=== PATIENT | female | born 1960 | race Caucasian/White ===

== ENCOUNTER 2018-08-29 08:28 | Inpatient (IN) | payer OTHER ==
[2018-08-29 09:46] LABS: ADD MAN DIFF? NO
[2018-08-29 09:48] LABS: WHITE BLOOD COUNT 7.5 10^3/ul (4.8-10.8)
[2018-08-29 09:48] LABS: BASOPHIL # 0.1 10^3/ul (0.0-0.1); BASOPHILS % 0.9 % (0.0-2.0); EOSINOPHILS # 0.5 10^3/ul (0.0-0.5); HEMATOCRIT 25.5 % (37.0-47.0); HEMOGLOBIN 8.1 g/dl (12.0-16.0); LYMPHOCYTES # 0.9 10^3/ul (0.8-2.9); LYMPHOCYTES % 12.6 % (15.0-51.0); MEAN CORPUSCULAR HEMOGLOBIN 27.5 pg (29.0-33.0); MEAN CORPUSCULAR HGB CONC 31.8 g/dl (32.0-37.0); MEAN CORPUSCULAR VOLUME 86.4 fl (82.0-101.0); MEAN PLATELET VOLUME 10.1 fl (7.4-10.4); MONOCYTE # 0.3 10^3/ul (0.3-0.9); MONOCYTES % 3.9 % (0.0-11.0); NEUTROPHIL # 5.7 10^3/ul (1.6-7.5); NEUTROPHILS % 76.2 % (39.0-77.0); PLATELET COUNT 284 10^3/UL (140-415); RED BLOOD COUNT 2.95 10^6/ul (4.20-5.40); RED CELL DISTRIBUTION WIDTH 14.6 % (11.5-14.5)
[2018-08-29 10:07] LABS: INR 1.09; PROTIME 14.2 Sec (11.9-14.9); PT RATIO 1.1
[2018-08-29 10:08] LABS: PARTIAL THROMBOPLASTIN TIME 31.7 Sec (23.0-35.0)
[2018-08-29 10:09] LABS: ALANINE AMINOTRANSFERASE 38 IU/L (13-69); ALBUMIN 3.7 g/dl (3.3-4.9); ALBUMIN/GLOBULIN RATIO 1.32; ALKALINE PHOSPHATASE 135 IU/L (42-121); ANION GAP 12 (5-13); ASPARTATE AMINO TRANSFERASE 35 IU/L (15-46); BILIRUBIN,INDIRECT 0.1 mg/dl (0-1.1); BILIRUBIN,TOTAL 0.4 mg/dl (0.2-1.3); BLOOD UREA NITROGEN 79 mg/dl (7-20); CALCIUM 9.6 mg/dl (8.4-10.2); CARBON DIOXIDE 15 mmol/L (21-31); CHLORIDE 116 mmol/L (97-110); CREATININE 5.69 mg/dl (0.44-1.00); Estimated GFR 8 mL/min (>60); GLUCOSE 124 mg/dl (70-220); SODIUM 143 mmol/L (135-144); TOTAL PROTEIN 6.5 g/dl (6.1-8.1)
[2018-08-29 10:16] LABS: POTASSIUM 6.3 mmol/L (3.5-5.1)
[2018-08-29 10:19] LABS: B-TYPE NATRIURETIC PEPTIDE 18000 PG/ML (0-125); TROPONIN-I 0.023 ng/ml (0.000-0.120)
[2018-08-29] MEDS: INSULIN REGULAR, HUMAN 100 UNIT/1 ML 3ML VIAL IVP (10:45)
[2018-08-29] MEDS: NA BICARBONATE 8.4% 50 ML SYG IV (10:46)
[2018-08-29] MEDS: DEXTROSE 50% 50 ML SYRINGE IV (10:55)
[2018-08-29] MEDS ORDERED: NITROGLYCERIN (SL) 0.4 MG TAB SL (11:00)
[2018-08-29] MEDS ORDERED: DOCUSATE SODIUM 100 MG CAP PO (11:00)
[2018-08-29] MEDS ORDERED: ACETAMINOPHEN 325 MG TAB PO ×2 (11:00→13:00)
[2018-08-29] MEDS ORDERED: MAGNESIUM HYDROXIDE 30ML CUP PO (11:00)
[2018-08-29] MEDS ORDERED: NACL 0.9% 3 ML SYG IV (11:00)
[2018-08-29] MEDS: ALBUTEROL 0.5% (NEB) 2.5 MG/0.5 ML AMP INH (11:29)
[2018-08-29 11:51] LABS: HEMOGLOBIN A1C 5.3 % (0-5.9)
[2018-08-29] MEDS: FAMOTIDINE 20 MG INJ IV ×2 (12:13→20:45)
[2018-08-29] MEDS: FUROSEMIDE 40 MG INJ IV ×2 (12:14→17:22)
[2018-08-29] MEDS: NICARDipine HCL 30 MG CAPSULE PO (12:49)
[2018-08-29] MEDS ORDERED: ONDANSETRON 4 MG INJ IV (13:00)
[2018-08-29 13:53] LABS: ADD UMIC YES; UR ASCORBIC ACID NEGATIVE (NEGATIVE); UR BILIRUBIN (Dip) NEGATIVE (NEGATIVE); UR BLOOD (Dip) 2+ mg/dL (NEGATIVE); UR CLARITY CLEAR (CLEAR); UR COLOR YELLOW (YELLOW); UR GLUCOSE (Dip) 1+ mg/dL (NEGATIVE); UR KETONES (Dip) NEGATIVE (NEGATIVE); UR LEUKOCYTE ESTERASE (Dip) NEGATIVE Leu/ul (NEGATIVE); UR NITRITE (Dip) NEGATIVE (NEGATIVE); UR RBC 1 /HPF (0-5); UR TOTAL PROTEIN (Dip) 3+ mg/dl (NEGATIVE); UR UROBILINOGEN (Dip) NEGATIVE (NEGATIVE); UR WBC 2 /HPF (0-5)
[2018-08-29] MEDS ORDERED: DEXTROSE 50% 50 ML SYRINGE IV ×2 (15:00)
[2018-08-29] MEDS ORDERED: GLUCAGON 1 MG INJ IM (15:00)
[2018-08-29] MEDS ORDERED: GLUCOSE GEL 15 GRAM TUBE PO ×2 (15:00)
[2018-08-29] MEDS ORDERED: GLUCOSE GEL 15 GRAM TUBE BUCCAL (15:00)
[2018-08-29 16:31] LABS: IRON 41 ug/dl (35-150)
[2018-08-29 16:32] LABS: ANION GAP 15 (5-13); BLOOD UREA NITROGEN 81 mg/dl (7-20); CARBON DIOXIDE 15 mmol/L (21-31); CHLORIDE 112 mmol/L (97-110); CREATININE 5.66 mg/dl (0.44-1.00); Estimated GFR 8 mL/min (>60); GLUCOSE 249 mg/dl (70-220); POTASSIUM 5.4 mmol/L (3.5-5.1); SODIUM 142 mmol/L (135-144)
[2018-08-29 16:40] LABS: % IRON SATURATION 13 % SAT (22-52); TOTAL IRON BINDING CAPACITY 305 ug/dl (241-421)
[2018-08-29] MEDS: INSULIN ASPART [NOVOLOG] 3 ML PEN SC ×2 (17:25→20:40)
[2018-08-29 18:20] LABS: SODIUM,URINE RANDOM 125 mmol/L (30-90)
[2018-08-29 18:20] LABS: CREATININE,URINE RANDOM 37.57 mg/dl (20-320)
[2018-08-29 18:42] LABS: CREATINE KINASE 616 IU/L (23-200)
[2018-08-29 18:56] LABS: AADO2 Arterial 62.3 mmHg (7.0-24.0); Allen Test ACCEPTAB; Arterial Base Excess -10.5 mmol/L (-3.0-3); Arterial Blood Gas Oxygen Sat 83.6 mmHG (95.0-98.0); Arterial COHb 0.3 % (0.0-3.0); Arterial Fraction of Oxyhgb 82.8 % (93.0-99.0); Arterial HCO3 14.8 mmol/L (22.0-26.0); Arterial MetHb 0.6 % (0.0-1.5); Arterial pCO2 30.6 mmhg (35-45); CK INDEX 1.2; CK-MB 7.19 ng/ml (0.0-2.4); MODE ROOM AIR; Site Left Radial; TROPONIN-I 0.044 ng/ml (0.000-0.120)
[2018-08-29] MEDS: ATORVASTATIN 10 MG TAB PO (20:39)
[2018-08-29] MEDS: METOPROLOL 25 MG TAB PO (20:39)
[2018-08-29] MEDS: METOPROLOL 5 MG INJ IV (20:49)
[2018-08-29] MEDS ORDERED: FAMOTIDINE 20 MG INJ IV (21:00)
[2018-08-30 01:10] LABS: CREATINE KINASE 629 IU/L (23-200)
[2018-08-30 01:23] LABS: CK INDEX 1.1; CK-MB 6.63 ng/ml (0.0-2.4)
[2018-08-30] MEDS: hydrALAzine 20 MG INJ IV ×3 (02:31→21:33)
[2018-08-30 06:22] LABS: ADD MAN DIFF? NO
[2018-08-30 06:30] LABS: BASOPHIL # 0.1 10^3/ul (0.0-0.1); EOSINOPHILS # 1.2 10^3/ul (0.0-0.5); EOSINOPHILS % 13.5 % (0.0-7.0); HEMATOCRIT 22.7 % (37.0-47.0); HEMOGLOBIN 7.5 g/dl (12.0-16.0); LYMPHOCYTES # 1.2 10^3/ul (0.8-2.9); LYMPHOCYTES % 13.7 % (15.0-51.0); MEAN CORPUSCULAR HEMOGLOBIN 28.1 pg (29.0-33.0); MEAN PLATELET VOLUME 9.8 fl (7.4-10.4); MONOCYTE # 0.5 10^3/ul (0.3-0.9); NEUTROPHIL # 5.9 10^3/ul (1.6-7.5); NEUTROPHILS % 66.4 % (39.0-77.0); PLATELET COUNT 235 10^3/UL (140-415); RED BLOOD COUNT 2.67 10^6/ul (4.20-5.40); RED CELL DISTRIBUTION WIDTH 14.7 % (11.5-14.5)
[2018-08-30 07:09] LABS: CK-MB 6.75 ng/ml (0.0-2.4); CREATINE KINASE 681 IU/L (23-200)
[2018-08-30 07:10] LABS: TROPONIN-I 0.143 ng/ml (0.000-0.120)
[2018-08-30 07:15] LABS: ALANINE AMINOTRANSFERASE 38 IU/L (13-69); ALBUMIN 2.9 g/dl (3.3-4.9); ALBUMIN/GLOBULIN RATIO 1.11; ALKALINE PHOSPHATASE 108 IU/L (42-121); ANION GAP 13 (5-13); ASPARTATE AMINO TRANSFERASE 33 IU/L (15-46); BILIRUBIN,TOTAL 0.1 mg/dl (0.2-1.3); BLOOD UREA NITROGEN 99 mg/dl (7-20); CALCIUM 8.8 mg/dl (8.4-10.2); CARBON DIOXIDE 16 mmol/L (21-31); CHLORIDE 112 mmol/L (97-110); CHOLESTEROL 119 mg/dl (100-200); CREATININE 6.06 mg/dl (0.44-1.00); Estimated GFR 7 mL/min (>60); GLUCOSE 108 mg/dl (70-220); HDL CHOLESTEROL 57 mg/dl (35-98); LDL CHOLESTEROL,CALCULATED 47 mg/dl; SODIUM 141 mmol/L (135-144); TOTAL PROTEIN 5.5 g/dl (6.1-8.1); TRIGLYCERIDES 74 mg/dl (0-149)
[2018-08-30 07:27] LABS: POTASSIUM 6.6 mmol/L (3.5-5.1)
[2018-08-30] MEDS: INSULIN ASPART [NOVOLOG] 3 ML PEN SC ×4 (07:55→21:00)
[2018-08-30] MEDS: ASPIRIN (EC) 81 MG TAB PO (08:14)
[2018-08-30] MEDS: METOPROLOL 25 MG TAB PO ×2 (08:14→21:43)
[2018-08-30] MEDS: FAMOTIDINE 20 MG INJ IV (08:14)
[2018-08-30] MEDS: FUROSEMIDE 40 MG INJ IV (08:14)
[2018-08-30] MEDS: NA POLYST SULFON 15 GM/60 ML BTL PO (08:17)
[2018-08-30] MEDS: NA BICARBONATE 8.4% 50 ML SYG IV (09:59)
[2018-08-30 14:59] LABS: HAAIG REFLEX REFLEX FILED
[2018-08-30 15:27] LABS: CREATINE KINASE 835 IU/L (23-200)
[2018-08-30 15:30] LABS: ANION GAP 15 (5-13); BLOOD UREA NITROGEN 102 mg/dl (7-20); CALCIUM 9.1 mg/dl (8.4-10.2); CARBON DIOXIDE 17 mmol/L (21-31); CHLORIDE 112 mmol/L (97-110); CREATININE 6.49 mg/dl (0.44-1.00); Estimated GFR 7 mL/min (>60); GLUCOSE 120 mg/dl (70-220); POTASSIUM 5.5 mmol/L (3.5-5.1); SODIUM 144 mmol/L (135-144)
[2018-08-30 15:36] LABS: COMPLEMENT C3 83 mg/dl (88-165); COMPLEMENT C4 29 mg/dl (14-44)
[2018-08-30 15:40] LABS: CK-MB 8.31 ng/ml (0.0-2.4); TROPONIN-I 0.073 ng/ml (0.000-0.120)
[2018-08-30 16:00] LABS: HEPATITIS B SURFACE ANTIGEN NEGATIVE (NEGATIVE)
[2018-08-30 16:18] LABS: HEPATITIS B CORE ANTIBODY NEGATIVE (NEGATIVE)
[2018-08-30 16:19] LABS: HEPATITIS C VIRAL ANTIBODY NEGATIVE (NEGATIVE)
[2018-08-30] MEDS ORDERED: LIDOCAINE 1% (MDV) 20 ML INJ (16:38)
[2018-08-30] MEDS ORDERED: HEPARIN 1000 UNITS/ML 10 ML INJ (16:38)
[2018-08-30] MEDS ORDERED: HEPARIN 1000 UNITS/NS (A-LINE) 1,000 ML (16:38)
[2018-08-30 17:26] LABS: HEPATITIS B SURFACE ANTIGEN NEGATIVE (NEGATIVE)
[2018-08-30 19:04] LABS: HEMOGLOBIN 7.9 g/dl (12.0-16.0)
[2018-08-30 21:42] LABS: RHEUMATOID FACTOR NEGATIVE (NEGATIVE)
[2018-08-30] MEDS: ATORVASTATIN 10 MG TAB PO (21:43)
[2018-08-30] MEDS: HYDROCODONE/APAP (5/325) TAB PO (21:45)
[2018-08-31] MEDS: hydrALAzine 20 MG INJ IV ×2 (03:14→12:02)
[2018-08-31] MEDS: HEPARIN 1000 UNITS/ML 10 ML INJ CATHETER (05:11)
[2018-08-31] MEDS: ONDANSETRON 4 MG INJ IV ×2 (05:20→12:02)
[2018-08-31 08:44] LABS: ADD MAN DIFF? NO
[2018-08-31] MEDS: FAMOTIDINE 20 MG TAB PO (08:59)
[2018-08-31] MEDS: ASPIRIN 81 MG TAB PO (08:59)
[2018-08-31] MEDS: FUROSEMIDE 40 MG INJ IV (08:59)
[2018-08-31] MEDS: METOPROLOL 25 MG TAB PO ×2 (08:59→21:07)
[2018-08-31 09:00] LABS: WHITE BLOOD COUNT 4.4 10^3/ul (4.8-10.8)
[2018-08-31 09:00] LABS: BASOPHILS % 0.7 % (0.0-2.0); EOSINOPHILS # 0.1 10^3/ul (0.0-0.5); EOSINOPHILS % 1.8 % (0.0-7.0); HEMATOCRIT 22.6 % (37.0-47.0); HEMOGLOBIN 7.4 g/dl (12.0-16.0); LYMPHOCYTES # 0.7 10^3/ul (0.8-2.9); LYMPHOCYTES % 15.1 % (15.0-51.0); MEAN CORPUSCULAR HEMOGLOBIN 27.8 pg (29.0-33.0); MEAN CORPUSCULAR HGB CONC 32.7 g/dl (32.0-37.0); MEAN PLATELET VOLUME 9.7 fl (7.4-10.4); MONOCYTE # 0.1 10^3/ul (0.3-0.9); MONOCYTES % 3.2 % (0.0-11.0); NEUTROPHIL # 3.4 10^3/ul (1.6-7.5); NEUTROPHILS % 78.7 % (39.0-77.0); PLATELET COUNT 209 10^3/UL (140-415); RED BLOOD COUNT 2.66 10^6/ul (4.20-5.40); RED CELL DISTRIBUTION WIDTH 14.6 % (11.5-14.5)
[2018-08-31] MEDS: INSULIN ASPART [NOVOLOG] 3 ML PEN SC ×4 (09:06→21:00)
[2018-08-31 09:19] LABS: CREATINE KINASE 519 IU/L (23-200)
[2018-08-31 09:21] LABS: ANION GAP 12 (5-13); BLOOD UREA NITROGEN 71 mg/dl (7-20); CALCIUM 8.6 mg/dl (8.4-10.2); CARBON DIOXIDE 22 mmol/L (21-31); CHLORIDE 106 mmol/L (97-110); CREATININE 4.25 mg/dl (0.44-1.00); Estimated GFR 11 mL/min (>60); GLUCOSE 122 mg/dl (70-220); MAGNESIUM 1.9 mg/dl (1.7-2.5); PHOSPHORUS 5.9 mg/dl (2.5-4.9); POTASSIUM 4.5 mmol/L (3.5-5.1); SODIUM 140 mmol/L (135-144)
[2018-08-31 09:27] LABS: CK INDEX 1.1; CK-MB 5.51 ng/ml (0.0-2.4); TROPONIN-I 0.092 ng/ml (0.000-0.120)
[2018-08-31] MEDS: EPOETIN 10000 UNITS/1 ML INJ (ESRD) SC (12:03)
[2018-08-31 13:17] LABS: MYELOPEROXIDASE ANTIBODY <1.0 AI; PROTEINASE-3 ANTIBODY <1.0 AI
[2018-08-31] MEDS: SOD FERRIC GLUC COMPLX 125 MG in SOD CHLORIDE 0.9% 100 ML IVPB (14:34)
[2018-08-31 15:36] LABS: CREATININE, RANDOM URINE 39 mg/dL (20-275); MICROALBUMIN/CREATININE RATIO 6179 (<30)
[2018-08-31] MEDS: ATORVASTATIN 10 MG TAB PO (21:06)
[2018-09-01] MEDS: hydrALAzine 20 MG INJ IV (03:53)
[2018-09-01 06:19] LABS: ADD MAN DIFF? NO
[2018-09-01 06:27] LABS: WHITE BLOOD COUNT 6.2 10^3/ul (4.8-10.8)
[2018-09-01 06:27] LABS: BASOPHILS % 0.5 % (0.0-2.0); EOSINOPHILS # 0.1 10^3/ul (0.0-0.5); EOSINOPHILS % 0.8 % (0.0-7.0); HEMATOCRIT 26.6 % (37.0-47.0); HEMOGLOBIN 8.7 g/dl (12.0-16.0); LYMPHOCYTES # 1.5 10^3/ul (0.8-2.9); LYMPHOCYTES % 24.9 % (15.0-51.0); MEAN CORPUSCULAR HEMOGLOBIN 27.6 pg (29.0-33.0); MEAN CORPUSCULAR HGB CONC 32.7 g/dl (32.0-37.0); MEAN CORPUSCULAR VOLUME 84.4 fl (82.0-101.0); MEAN PLATELET VOLUME 10.5 fl (7.4-10.4); MONOCYTE # 0.5 10^3/ul (0.3-0.9); MONOCYTES % 7.8 % (0.0-11.0); NEUTROPHIL # 4.1 10^3/ul (1.6-7.5); NEUTROPHILS % 65.7 % (39.0-77.0); PLATELET COUNT 285 10^3/UL (140-415); RED BLOOD COUNT 3.15 10^6/ul (4.20-5.40)
[2018-09-01 06:56] LABS: ANION GAP 13 (5-13); BLOOD UREA NITROGEN 93 mg/dl (7-20); CALCIUM 8.5 mg/dl (8.4-10.2); CARBON DIOXIDE 23 mmol/L (21-31); CHLORIDE 104 mmol/L (97-110); CREATININE 5.73 mg/dl (0.44-1.00); Estimated GFR 8 mL/min (>60); GLUCOSE 107 mg/dl (70-220); PHOSPHORUS 9.6 mg/dl (2.5-4.9); POTASSIUM 5.2 mmol/L (3.5-5.1); SODIUM 140 mmol/L (135-144)
[2018-09-01] MEDS: INSULIN ASPART [NOVOLOG] 3 ML PEN SC ×4 (07:49→21:00)
[2018-09-01 08:36] LABS: PTH INTACT 78 pg/mL (14-64)
[2018-09-01] MEDS: FUROSEMIDE 40 MG INJ IV (09:00)
[2018-09-01] MEDS: METOPROLOL 25 MG TAB PO ×2 (09:00→21:47)
[2018-09-01] MEDS: FAMOTIDINE 20 MG TAB PO (09:43)
[2018-09-01] MEDS: ASPIRIN 81 MG TAB PO (09:43)
[2018-09-01] MEDS: SEVELAMER CARBONATE 800 MG TABLET PO ×2 (12:24→17:49)
[2018-09-01] MEDS: NIFEdipine (XL) 30 MG TAB PO (12:25)
[2018-09-01] MEDS: ONDANSETRON 4 MG INJ IV ×2 (12:27→17:49)
[2018-09-01] MEDS: HEPARIN 1000 UNITS/ML 10 ML INJ CATHETER (16:04)
[2018-09-01 17:17] LABS: ANTI-DNA (DOUBLE STRANDED) <95 U/mL (< 301)
[2018-09-01] MEDS: SOD FERRIC GLUC COMPLX 125 MG in SOD CHLORIDE 0.9% 100 ML IVPB (17:50)
[2018-09-01] MEDS: DEXTROSE 5%-0.45% NACL 1,000 ML IV (17:50)
[2018-09-01 19:37] LABS: ANA SCREEN POSITIVE (NEGATIVE); ANCA SCREEN NEGATIVE (NEGATIVE)
[2018-09-01 20:23] LABS: ANA PATTERN SPECKLED; ANA TITER 1:40 titer
[2018-09-01] MEDS: ATORVASTATIN 10 MG TAB PO (21:47)
[2018-09-02] MEDS: ONDANSETRON 4 MG INJ IV ×2 (05:31→13:39)
[2018-09-02] MEDS ORDERED: PROPOFOL 200 MG INJ (07:00)
[2018-09-02 07:16] LABS: ADD MAN DIFF? NO
[2018-09-02 07:22] LABS: WHITE BLOOD COUNT 5.8 10^3/ul (4.8-10.8)
[2018-09-02 07:22] LABS: BASOPHILS % 0.7 % (0.0-2.0); EOSINOPHILS # 0.3 10^3/ul (0.0-0.5); EOSINOPHILS % 4.6 % (0.0-7.0); HEMATOCRIT 25.7 % (37.0-47.0); HEMOGLOBIN 8.3 g/dl (12.0-16.0); LYMPHOCYTES # 1.3 10^3/ul (0.8-2.9); LYMPHOCYTES % 21.4 % (15.0-51.0); MEAN CORPUSCULAR HGB CONC 32.3 g/dl (32.0-37.0); MEAN CORPUSCULAR VOLUME 83.7 fl (82.0-101.0); MEAN PLATELET VOLUME 10.8 fl (7.4-10.4); MONOCYTE # 0.5 10^3/ul (0.3-0.9); MONOCYTES % 8.7 % (0.0-11.0); NEUTROPHIL # 3.8 10^3/ul (1.6-7.5); NEUTROPHILS % 64.4 % (39.0-77.0); PLATELET COUNT 228 10^3/UL (140-415); RED BLOOD COUNT 3.07 10^6/ul (4.20-5.40); RED CELL DISTRIBUTION WIDTH 14.7 % (11.5-14.5)
[2018-09-02 07:36] LABS: ANION GAP 11 (5-13); BLOOD UREA NITROGEN 68 mg/dl (7-20); CALCIUM 7.7 mg/dl (8.4-10.2); CARBON DIOXIDE 26 mmol/L (21-31); CHLORIDE 100 mmol/L (97-110); CREATININE 4.57 mg/dl (0.44-1.00); Estimated GFR 10 mL/min (>60); GLUCOSE 92 mg/dl (70-220); MAGNESIUM 1.9 mg/dl (1.7-2.5); PHOSPHORUS 7.3 mg/dl (2.5-4.9); POTASSIUM 4.6 mmol/L (3.5-5.1); SODIUM 137 mmol/L (135-144)
[2018-09-02] MEDS: INSULIN ASPART [NOVOLOG] 3 ML PEN SC ×4 (07:55→20:50)
[2018-09-02] MEDS: SEVELAMER CARBONATE 800 MG TABLET PO ×3 (07:55→17:55)
[2018-09-02] MEDS ORDERED: LABETALOL HCL 20MG INJ IV (08:00)
[2018-09-02] MEDS ORDERED: ONDANSETRON 4 MG INJ IV (08:00)
[2018-09-02] MEDS ORDERED: FENTAnyl 50 MCG/ML VIAL IV ×3 (08:00)
[2018-09-02] MEDS ORDERED: OXYCODONE/ACETAMINOPHEN (5/325) TAB PO ×2 (08:00)
[2018-09-02] MEDS: HEPARIN 1000 UNITS/ML 10 ML INJ (08:27)
[2018-09-02] MEDS: LIDOCAINE 1% (MDV) 20 ML INJ (08:27)
[2018-09-02] MEDS: MIDAZOLAM 1 MG/ML 2 ML INJ (08:52)
[2018-09-02] MEDS: FENTAnyl 50 MCG/ML VIAL (08:53)
[2018-09-02] MEDS: FAMOTIDINE 20 MG TAB PO (09:00)
[2018-09-02] MEDS: NIFEdipine (XL) 30 MG TAB PO (09:00)
[2018-09-02] MEDS: METOPROLOL 25 MG TAB PO ×2 (09:00→20:49)
[2018-09-02] MEDS: ASPIRIN 81 MG TAB PO (09:00)
[2018-09-02] MEDS: FUROSEMIDE 40 MG INJ IV (09:00)
[2018-09-02] MEDS: HYDROCODONE/APAP (5/325) TAB PO (10:50)
[2018-09-02] MEDS: SOD FERRIC GLUC COMPLX 125 MG in SOD CHLORIDE 0.9% 100 ML IVPB (13:00)
[2018-09-02] MEDS: morphine 2 MG INJ IV ×2 (13:39→19:07)
[2018-09-02] MEDS: DEXTROSE 5%-0.45% NACL 1,000 ML IV (15:30)
[2018-09-02 15:47] LABS: HEPATITIS B SURFACE ANTIBODY NEGATIVE (NEGATIVE)
[2018-09-02] MEDS: HEPARIN 1000 UNITS/ML 10 ML INJ CATHETER (18:23)
[2018-09-02] MEDS: PANTOPRAZOLE (EC) 40 MG TAB PO (18:57)
[2018-09-02] MEDS: ATORVASTATIN 10 MG TAB PO (20:49)
[2018-09-02] MEDS: METOCLOPRAMIDE 10 MG INJ IV (21:01)
[2018-09-03] MEDS: hydrALAzine 20 MG INJ IV (04:19)
[2018-09-03] MEDS: PANTOPRAZOLE (EC) 40 MG TAB PO (06:54)
[2018-09-03] MEDS: INSULIN ASPART [NOVOLOG] 3 ML PEN SC ×4 (07:55→21:00)
[2018-09-03] MEDS: ONDANSETRON 4 MG INJ IV (08:24)
[2018-09-03] MEDS: METOPROLOL 25 MG TAB PO ×2 (08:54→20:49)
[2018-09-03] MEDS: SEVELAMER CARBONATE 800 MG TABLET PO ×3 (08:54→17:30)
[2018-09-03] MEDS: FUROSEMIDE 40 MG INJ IV (08:55)
[2018-09-03] MEDS: FAMOTIDINE 20 MG TAB PO (08:55)
[2018-09-03] MEDS: ASPIRIN 81 MG TAB PO (08:55)
[2018-09-03 08:59] LABS: ADD MAN DIFF? NO
[2018-09-03 09:01] LABS: BASOPHILS % 0.6 % (0.0-2.0); EOSINOPHILS # 0.1 10^3/ul (0.0-0.5); EOSINOPHILS % 0.8 % (0.0-7.0); HEMATOCRIT 28.6 % (37.0-47.0); HEMOGLOBIN 9.2 g/dl (12.0-16.0); LYMPHOCYTES # 1.2 10^3/ul (0.8-2.9); LYMPHOCYTES % 19.8 % (15.0-51.0); MEAN CORPUSCULAR HEMOGLOBIN 27.1 pg (29.0-33.0); MEAN CORPUSCULAR HGB CONC 32.2 g/dl (32.0-37.0); MEAN CORPUSCULAR VOLUME 84.1 fl (82.0-101.0); MEAN PLATELET VOLUME 10.5 fl (7.4-10.4); MONOCYTE # 0.6 10^3/ul (0.3-0.9); MONOCYTES % 9.1 % (0.0-11.0); NEUTROPHIL # 4.3 10^3/ul (1.6-7.5); NEUTROPHILS % 69.4 % (39.0-77.0); PLATELET COUNT 238 10^3/UL (140-415); RED CELL DISTRIBUTION WIDTH 14.6 % (11.5-14.5)
[2018-09-03 09:01] LABS: WHITE BLOOD COUNT 6.2 10^3/ul (4.8-10.8)
[2018-09-03] MEDS: NIFEdipine (XL) 30 MG TAB PO ×2 (09:02→20:48)
[2018-09-03 09:24] LABS: ANION GAP 9 (5-13); BLOOD UREA NITROGEN 43 mg/dl (7-20); CALCIUM 7.8 mg/dl (8.4-10.2); CARBON DIOXIDE 29 mmol/L (21-31); CHLORIDE 100 mmol/L (97-110); Estimated GFR 13 mL/min (>60); GLUCOSE 109 mg/dl (70-220); POTASSIUM 4.2 mmol/L (3.5-5.1); SODIUM 138 mmol/L (135-144)
[2018-09-03] MEDS: METOCLOPRAMIDE 10 MG INJ IV (10:41)
[2018-09-03] MEDS: SOD FERRIC GLUC COMPLX 125 MG in SOD CHLORIDE 0.9% 100 ML IVPB (12:33)
[2018-09-03] MEDS: SUCRALFATE (100 MG/ML) 10ML CUP PO ×2 (17:30→20:47)
[2018-09-03] MEDS: ATORVASTATIN 10 MG TAB PO (20:47)
[2018-09-04] MEDS: PANTOPRAZOLE (EC) 40 MG TAB PO (05:26)
[2018-09-04 06:20] LABS: ADD MAN DIFF? NO
[2018-09-04 06:26] LABS: BASOPHIL # 0.1 10^3/ul (0.0-0.1); BASOPHILS % 0.8 % (0.0-2.0); EOSINOPHILS # 0.4 10^3/ul (0.0-0.5); EOSINOPHILS % 4.9 % (0.0-7.0); HEMATOCRIT 25.7 % (37.0-47.0); HEMOGLOBIN 8.4 g/dl (12.0-16.0); LYMPHOCYTES # 1.7 10^3/ul (0.8-2.9); LYMPHOCYTES % 22.2 % (15.0-51.0); MEAN CORPUSCULAR HEMOGLOBIN 27.5 pg (29.0-33.0); MEAN CORPUSCULAR HGB CONC 32.7 g/dl (32.0-37.0); MEAN PLATELET VOLUME 10.4 fl (7.4-10.4); MONOCYTE # 0.8 10^3/ul (0.3-0.9); MONOCYTES % 10.4 % (0.0-11.0); NEUTROPHIL # 4.6 10^3/ul (1.6-7.5); NEUTROPHILS % 61.3 % (39.0-77.0); PLATELET COUNT 206 10^3/UL (140-415); RED BLOOD COUNT 3.06 10^6/ul (4.20-5.40); RED CELL DISTRIBUTION WIDTH 14.4 % (11.5-14.5)
[2018-09-04 06:26] LABS: WHITE BLOOD COUNT 7.5 10^3/ul (4.8-10.8)
[2018-09-04 06:55] LABS: ANION GAP 9 (5-13); BLOOD UREA NITROGEN 61 mg/dl (7-20); CALCIUM 7.9 mg/dl (8.4-10.2); CARBON DIOXIDE 28 mmol/L (21-31); CHLORIDE 98 mmol/L (97-110); CREATININE 4.74 mg/dl (0.44-1.00); Estimated GFR 9 mL/min (>60); GLUCOSE 89 mg/dl (70-220); MAGNESIUM 2.1 mg/dl (1.7-2.5); PHOSPHORUS 6.8 mg/dl (2.5-4.9); POTASSIUM 4.2 mmol/L (3.5-5.1); SODIUM 135 mmol/L (135-144)
[2018-09-04] MEDS: INSULIN ASPART [NOVOLOG] 3 ML PEN SC ×4 (07:55→20:42)
[2018-09-04] MEDS: SEVELAMER CARBONATE 800 MG TABLET PO ×3 (08:24→16:52)
[2018-09-04] MEDS: FAMOTIDINE 20 MG TAB PO (08:25)
[2018-09-04] MEDS: ASPIRIN 81 MG TAB PO (08:25)
[2018-09-04] MEDS: NIFEdipine (XL) 30 MG TAB PO ×2 (08:25→20:40)
[2018-09-04] MEDS: SUCRALFATE (100 MG/ML) 10ML CUP PO ×4 (08:25→20:38)
[2018-09-04] MEDS: METOPROLOL 25 MG TAB PO ×2 (08:25→20:39)
[2018-09-04] MEDS: FUROSEMIDE 40 MG INJ IV (08:25)
[2018-09-04] MEDS: HEPARIN 1000 UNITS/ML 10 ML INJ CATHETER (13:07)
[2018-09-04] MEDS: SOD FERRIC GLUC COMPLX 125 MG in SOD CHLORIDE 0.9% 100 ML IVPB (14:55)
[2018-09-04] MEDS: ATORVASTATIN 10 MG TAB PO (20:38)
[2018-09-05] MEDS: PANTOPRAZOLE (EC) 40 MG TAB PO (05:18)
[2018-09-05 06:54] LABS: ADD MAN DIFF? NO
[2018-09-05 06:56] LABS: BASOPHIL # 0.1 10^3/ul (0.0-0.1); BASOPHILS % 0.6 % (0.0-2.0); EOSINOPHILS # 0.6 10^3/ul (0.0-0.5); EOSINOPHILS % 7.9 % (0.0-7.0); HEMATOCRIT 25.2 % (37.0-47.0); HEMOGLOBIN 8.1 g/dl (12.0-16.0); LYMPHOCYTES # 1.6 10^3/ul (0.8-2.9); LYMPHOCYTES % 20.3 % (15.0-51.0); MEAN CORPUSCULAR HEMOGLOBIN 27.8 pg (29.0-33.0); MEAN CORPUSCULAR HGB CONC 32.1 g/dl (32.0-37.0); MEAN CORPUSCULAR VOLUME 86.6 fl (82.0-101.0); MONOCYTE # 0.8 10^3/ul (0.3-0.9); MONOCYTES % 9.4 % (0.0-11.0); NEUTROPHIL # 4.9 10^3/ul (1.6-7.5); NEUTROPHILS % 61.3 % (39.0-77.0); PLATELET COUNT 199 10^3/UL (140-415); RED BLOOD COUNT 2.91 10^6/ul (4.20-5.40); RED CELL DISTRIBUTION WIDTH 14.3 % (11.5-14.5)
[2018-09-05 07:24] LABS: ANION GAP 6 (5-13); BLOOD UREA NITROGEN 34 mg/dl (7-20); CARBON DIOXIDE 26 mmol/L (21-31); CHLORIDE 103 mmol/L (97-110); CREATININE 3.43 mg/dl (0.44-1.00); Estimated GFR 14 mL/min (>60); GLUCOSE 88 mg/dl (70-220); MAGNESIUM 2.1 mg/dl (1.7-2.5); PHOSPHORUS 3.8 mg/dl (2.5-4.9); POTASSIUM 4.3 mmol/L (3.5-5.1); SODIUM 135 mmol/L (135-144)
[2018-09-05 07:26] LABS: CALCIUM 7.5 mg/dl (8.4-10.2)
[2018-09-05] MEDS: INSULIN ASPART [NOVOLOG] 3 ML PEN SC ×4 (07:55→21:00)
[2018-09-05] MEDS: SEVELAMER CARBONATE 800 MG TABLET PO ×3 (08:36→17:36)
[2018-09-05] MEDS: SUCRALFATE (100 MG/ML) 10ML CUP PO ×4 (08:36→20:30)
[2018-09-05] MEDS: METOPROLOL 25 MG TAB PO ×2 (08:37→20:31)
[2018-09-05] MEDS: NIFEdipine (XL) 30 MG TAB PO ×2 (08:37→20:31)
[2018-09-05] MEDS: FAMOTIDINE 20 MG TAB PO (08:37)
[2018-09-05] MEDS: ASPIRIN 81 MG TAB PO (08:37)
[2018-09-05] MEDS: FUROSEMIDE 40 MG INJ IV (08:38)
[2018-09-05] MEDS: ATORVASTATIN 10 MG TAB PO (20:31)
[2018-09-06] MEDS: PANTOPRAZOLE (EC) 40 MG TAB PO (06:15)
[2018-09-06 07:55] LABS: ADD MAN DIFF? NO
[2018-09-06] MEDS: INSULIN ASPART [NOVOLOG] 3 ML PEN SC ×3 (07:55→17:18)
[2018-09-06 08:04] LABS: BASOPHIL # 0.1 10^3/ul (0.0-0.1); BASOPHILS % 0.6 % (0.0-2.0); EOSINOPHILS # 1.8 10^3/ul (0.0-0.5); HEMATOCRIT 25.3 % (37.0-47.0); HEMOGLOBIN 8.2 g/dl (12.0-16.0); LYMPHOCYTES # 1.7 10^3/ul (0.8-2.9); LYMPHOCYTES % 16.2 % (15.0-51.0); MEAN CORPUSCULAR HEMOGLOBIN 27.9 pg (29.0-33.0); MEAN CORPUSCULAR HGB CONC 32.4 g/dl (32.0-37.0); MEAN CORPUSCULAR VOLUME 86.1 fl (82.0-101.0); MEAN PLATELET VOLUME 10.6 fl (7.4-10.4); MONOCYTE # 0.8 10^3/ul (0.3-0.9); MONOCYTES % 7.9 % (0.0-11.0); NEUTROPHIL # 6.1 10^3/ul (1.6-7.5); NEUTROPHILS % 57.9 % (39.0-77.0); PLATELET COUNT 222 10^3/UL (140-415); RED BLOOD COUNT 2.94 10^6/ul (4.20-5.40); RED CELL DISTRIBUTION WIDTH 14.5 % (11.5-14.5)
[2018-09-06 08:04] LABS: WHITE BLOOD COUNT 10.4 10^3/ul (4.8-10.8)
[2018-09-06 08:34] LABS: ANION GAP 8 (5-13); BLOOD UREA NITROGEN 55 mg/dl (7-20); CALCIUM 7.8 mg/dl (8.4-10.2); CARBON DIOXIDE 24 mmol/L (21-31); CHLORIDE 98 mmol/L (97-110); CREATININE 4.46 mg/dl (0.44-1.00); Estimated GFR 10 mL/min (>60); GLUCOSE 82 mg/dl (70-220); PHOSPHORUS 3.9 mg/dl (2.5-4.9); POTASSIUM 4.8 mmol/L (3.5-5.1); SODIUM 130 mmol/L (135-144)
[2018-09-06] MEDS: SUCRALFATE (100 MG/ML) 10ML CUP PO ×3 (10:08→17:00)
[2018-09-06] MEDS: SEVELAMER CARBONATE 800 MG TABLET PO ×3 (10:09→17:18)
[2018-09-06] MEDS: FAMOTIDINE 20 MG TAB PO (10:09)
[2018-09-06] MEDS: METOPROLOL 25 MG TAB PO (10:09)
[2018-09-06] MEDS: NIFEdipine (XL) 30 MG TAB PO (10:10)
[2018-09-06] MEDS: FUROSEMIDE 40 MG INJ IV (10:10)
[2018-09-06] MEDS: ASPIRIN 81 MG TAB PO (10:10)
[2018-09-06] MEDS: HEPARIN 1000 UNITS/ML 10 ML INJ CATHETER (19:21)
== END 2018-09-06 21:00 | disposition home or self-care (01) | DRG 291 ==
LOC: E/R 08:28 → TEL 12:52
PROVIDERS: Internal Medicine
PROC: 05HM33Z Insertion of Infusion Device into Right Internal Jugular Vein, Percutaneous Approach (ICD-10-PCS; principal; 2018-08-30 16:20)
PROC: B5131ZA Fluoroscopy of Right Jugular Veins using Low Osmolar Contrast, Guidance (ICD-10-PCS; 2018-08-30 16:20)
PROC: 5A1D70Z Performance of Urinary Filtration, Intermittent, Less than 6 Hours Per Day (ICD-10-PCS; 2018-08-30 16:20)
PROC: 5A1D70Z Performance of Urinary Filtration, Intermittent, Less than 6 Hours Per Day (ICD-10-PCS; 2018-08-30 16:20)
PROC: 5A1D70Z Performance of Urinary Filtration, Intermittent, Less than 6 Hours Per Day (ICD-10-PCS; 2018-08-30 16:20)
PROC: 5A1D70Z Performance of Urinary Filtration, Intermittent, Less than 6 Hours Per Day (ICD-10-PCS; 2018-08-30 16:20)
PROC: 5A1D70Z Performance of Urinary Filtration, Intermittent, Less than 6 Hours Per Day (ICD-10-PCS; 2018-08-30 16:20)
DX: I13.2 Hypertensive heart and chronic kidney disease with heart failure and with stage 5 chronic kidney disease, or end stage renal disease (principal); I50.33 Acute on chronic diastolic (congestive) heart failure; N18.6 End stage renal disease; N17.9 Acute kidney failure, unspecified; I16.1 Hypertensive emergency; E87.2 Acidosis; E87.5 Hyperkalemia; E11.22 Type 2 diabetes mellitus with diabetic chronic kidney disease; I11.0 Hypertensive heart disease with heart failure; I50.84 End stage heart failure; E78.5 Hyperlipidemia, unspecified; D64.9 Anemia, unspecified; R42 Dizziness and giddiness; H53.8 Other visual disturbances; Z79.4 Long term (current) use of insulin; Z79.82 Long term (current) use of aspirin; R00.0 Tachycardia, unspecified
CPT/HCPCS: 36558; 36600; 70450; 71045; 76775; 80048; 80053; 80061; 81001; 81003; 82043; 82306; 82550; 82553; 82595; 82803; 82962; 83036; 83540; 83735; 83880; 83970; 84100; 84155; 84300; 84443; 84484; 85014; 85018; 85025; 85610; 85730; 86021; 86038; 86160; 86226; 86430; 86704; 86706; 86709; 86803; 87340; 88300; 90935; 93005; 93306; 93970; 94664; 96374; 96375; 97161; 97166; 99285-25

== ENCOUNTER 2018-10-06 19:21 | Emergency (ER) | payer OTHER ==
[2018-10-06] MEDS: morphine 10 MG INJ IM (21:36)
== END 2018-10-06 23:37 | disposition home or self-care (01) ==
LOC: E/R 19:21
DX: S42.212A Unspecified displaced fracture of surgical neck of left humerus, initial encounter for closed fracture (principal); I12.9 Hypertensive chronic kidney disease with stage 1 through stage 4 chronic kidney disease, or unspecified chronic kidney disease; N18.9 Chronic kidney disease, unspecified; E11.22 Type 2 diabetes mellitus with diabetic chronic kidney disease; W01.0XXA Fall on same level from slipping, tripping and stumbling without subsequent striking against object, initial encounter; Y92.89 Other specified places as the place of occurrence of the external cause; Z79.82 Long term (current) use of aspirin; Z99.2 Dependence on renal dialysis
CPT/HCPCS: 73030; 73060; 96372; 99284-25

== ENCOUNTER 2018-10-19 12:04 | Inpatient (IN) | payer OTHER ==
[2018-10-19 13:08] LABS: ADD MAN DIFF? NO
[2018-10-19 13:12] LABS: WHITE BLOOD COUNT 7.5 10^3/ul (4.8-10.8)
[2018-10-19 13:12] LABS: BASOPHIL # 0.1 10^3/ul (0.0-0.1); BASOPHILS % 0.8 % (0.0-2.0); EOSINOPHILS # 0.6 10^3/ul (0.0-0.5); EOSINOPHILS % 7.3 % (0.0-7.0); HEMATOCRIT 29.5 % (37.0-47.0); HEMOGLOBIN 9.4 g/dl (12.0-16.0); LYMPHOCYTES # 0.7 10^3/ul (0.8-2.9); LYMPHOCYTES % 8.8 % (15.0-51.0); MEAN CORPUSCULAR HEMOGLOBIN 29.7 pg (29.0-33.0); MEAN CORPUSCULAR HGB CONC 31.9 g/dl (32.0-37.0); MEAN CORPUSCULAR VOLUME 93.4 fl (82.0-101.0); MEAN PLATELET VOLUME 10.1 fl (7.4-10.4); MONOCYTE # 0.6 10^3/ul (0.3-0.9); MONOCYTES % 7.3 % (0.0-11.0); NEUTROPHIL # 5.7 10^3/ul (1.6-7.5); NEUTROPHILS % 75.5 % (39.0-77.0); PLATELET COUNT 195 10^3/UL (140-415); RED BLOOD COUNT 3.16 10^6/ul (4.20-5.40); RED CELL DISTRIBUTION WIDTH 17.6 % (11.5-14.5)
[2018-10-19 13:29] LABS: ANION GAP 8 (5-13); BLOOD UREA NITROGEN 39 mg/dl (7-20); CALCIUM 8.9 mg/dl (8.4-10.2); CARBON DIOXIDE 26 mmol/L (21-31); CHLORIDE 104 mmol/L (97-110); CREATININE 3.84 mg/dl (0.44-1.00); Estimated GFR 12 mL/min (>60); GLUCOSE 123 mg/dl (70-220); POTASSIUM 4.3 mmol/L (3.5-5.1); SODIUM 138 mmol/L (135-144)
[2018-10-19 13:32] LABS: INR 0.98; PARTIAL THROMBOPLASTIN TIME 29.7 Sec (23.0-35.0); PROTIME 13.1 Sec (11.9-14.9)
[2018-10-19] MEDS: ONDANSETRON (ODT) 4 MG TAB ODT (13:49)
[2018-10-19] MEDS: HYDROCODONE/APAP (5/325) TAB PO (13:50)
[2018-10-19] MEDS ORDERED: NACL 0.9% 3 ML SYG IV (15:00)
[2018-10-19] MEDS ORDERED: ACETAMINOPHEN 325 MG TAB PO (15:00)
[2018-10-19] MEDS ORDERED: ONDANSETRON 4 MG INJ IV (15:00)
[2018-10-19] MEDS ORDERED: [UNRECOGNIZED DRUG - REMARK] XX (16:30)
[2018-10-19] MEDS: ATORVASTATIN 10 MG TAB PO (22:25)
[2018-10-19] MEDS: METOPROLOL 25 MG TAB PO (22:26)
[2018-10-19] MEDS: NIFEdipine (XL) 60 MG TAB PO (22:26)
[2018-10-19] MEDS: SEVELAMER CARBONATE 0.8 GM PKT PO (22:27)
[2018-10-20] MEDS: INSULIN ASPART [NOVOLOG] 3 ML PEN SC ×6 (01:00→21:00)
[2018-10-20] MEDS: SOD CHLORIDE 0.9% 1,000 ML IV (01:52)
[2018-10-20] MEDS: HYDROCODONE/APAP (5/325) TAB PO ×2 (01:58→23:51)
[2018-10-20 05:20] LABS: ADD MAN DIFF? NO
[2018-10-20 05:25] LABS: WHITE BLOOD COUNT 7.2 10^3/ul (4.8-10.8)
[2018-10-20 05:25] LABS: BASOPHIL # 0.1 10^3/ul (0.0-0.1); BASOPHILS % 0.7 % (0.0-2.0); EOSINOPHILS # 0.5 10^3/ul (0.0-0.5); EOSINOPHILS % 6.8 % (0.0-7.0); HEMATOCRIT 27.8 % (37.0-47.0); HEMOGLOBIN 8.7 g/dl (12.0-16.0); LYMPHOCYTES # 0.9 10^3/ul (0.8-2.9); LYMPHOCYTES % 11.8 % (15.0-51.0); MEAN CORPUSCULAR HEMOGLOBIN 29.1 pg (29.0-33.0); MEAN CORPUSCULAR HGB CONC 31.3 g/dl (32.0-37.0); MONOCYTE # 0.5 10^3/ul (0.3-0.9); MONOCYTES % 7.5 % (0.0-11.0); NEUTROPHIL # 5.2 10^3/ul (1.6-7.5); NEUTROPHILS % 72.8 % (39.0-77.0); PLATELET COUNT 189 10^3/UL (140-415); RED BLOOD COUNT 2.99 10^6/ul (4.20-5.40); RED CELL DISTRIBUTION WIDTH 17.7 % (11.5-14.5)
[2018-10-20 05:51] LABS: MAGNESIUM 2.5 mg/dl (1.7-2.5)
[2018-10-20 05:51] LABS: PHOSPHORUS 3.4 mg/dl (2.5-4.9)
[2018-10-20 05:54] LABS: ANION GAP 9 (5-13); BLOOD UREA NITROGEN 48 mg/dl (7-20); CALCIUM 8.3 mg/dl (8.4-10.2); CARBON DIOXIDE 25 mmol/L (21-31); CHLORIDE 104 mmol/L (97-110); CREATININE 4.62 mg/dl (0.44-1.00); Estimated GFR 10 mL/min (>60); GLUCOSE 108 mg/dl (70-220); POTASSIUM 4.5 mmol/L (3.5-5.1); SODIUM 138 mmol/L (135-144)
[2018-10-20] MEDS: SEVELAMER CARBONATE 0.8 GM PKT PO ×3 (08:00→21:29)
[2018-10-20] MEDS: METOPROLOL 25 MG TAB PO ×2 (08:41→21:28)
[2018-10-20] MEDS: FOLIC ACID 0.4 MG TAB PO (08:41)
[2018-10-20] MEDS: NIFEdipine (XL) 60 MG TAB PO ×2 (08:41→21:28)
[2018-10-20] MEDS: morphine 2 MG INJ IV (11:29)
[2018-10-20] MEDS: hydrALAzine 20 MG INJ IV (15:05)
[2018-10-20] MEDS ORDERED: DEXTROSE 50% 50 ML SYRINGE IV ×2 (19:30)
[2018-10-20] MEDS ORDERED: GLUCAGON 1 MG INJ IM (19:30)
[2018-10-20] MEDS ORDERED: GLUCOSE GEL 15 GRAM TUBE PO ×2 (19:30)
[2018-10-20] MEDS ORDERED: GLUCOSE GEL 15 GRAM TUBE BUCCAL (19:30)
[2018-10-20] MEDS: ATORVASTATIN 10 MG TAB PO (21:28)
[2018-10-20] MEDS: EPOETIN ALFA-EPBX (ESRD) 10,000 UNIT/ML VIAL SC (21:36)
[2018-10-21] MEDS: INSULIN ASPART [NOVOLOG] 3 ML PEN SC ×5 (01:00→17:00)
[2018-10-21] MEDS: SOD CHLORIDE 0.9% 1,000 ML IV (01:01)
[2018-10-21 05:30] LABS: ADD MAN DIFF? NO
[2018-10-21 05:33] LABS: WHITE BLOOD COUNT 5.4 10^3/ul (4.8-10.8)
[2018-10-21 05:33] LABS: BASOPHIL # 0.1 10^3/ul (0.0-0.1); BASOPHILS % 0.9 % (0.0-2.0); EOSINOPHILS # 0.5 10^3/ul (0.0-0.5); EOSINOPHILS % 8.4 % (0.0-7.0); HEMATOCRIT 28.2 % (37.0-47.0); LYMPHOCYTES # 0.9 10^3/ul (0.8-2.9); LYMPHOCYTES % 16.9 % (15.0-51.0); MEAN CORPUSCULAR HEMOGLOBIN 29.7 pg (29.0-33.0); MEAN CORPUSCULAR HGB CONC 31.9 g/dl (32.0-37.0); MEAN CORPUSCULAR VOLUME 93.1 fl (82.0-101.0); MONOCYTE # 0.5 10^3/ul (0.3-0.9); MONOCYTES % 8.4 % (0.0-11.0); NEUTROPHIL # 3.5 10^3/ul (1.6-7.5); PLATELET COUNT 189 10^3/UL (140-415); RED BLOOD COUNT 3.03 10^6/ul (4.20-5.40); RED CELL DISTRIBUTION WIDTH 17.3 % (11.5-14.5)
[2018-10-21 05:54] LABS: MAGNESIUM 2.3 mg/dl (1.7-2.5)
[2018-10-21 05:54] LABS: PHOSPHORUS 2.7 mg/dl (2.5-4.9)
[2018-10-21 06:06] LABS: ANION GAP 6 (5-13); BLOOD UREA NITROGEN 30 mg/dl (7-20); CALCIUM 8.3 mg/dl (8.4-10.2); CARBON DIOXIDE 30 mmol/L (21-31); CHLORIDE 104 mmol/L (97-110); CREATININE 3.13 mg/dl (0.44-1.00); Estimated GFR 15 mL/min (>60); GLUCOSE 92 mg/dl (70-220); SODIUM 140 mmol/L (135-144)
[2018-10-21] MEDS: SEVELAMER CARBONATE 0.8 GM PKT PO ×3 (08:00→18:00)
[2018-10-21] MEDS: FOLIC ACID 0.4 MG TAB PO (09:00)
[2018-10-21] MEDS: METOPROLOL 25 MG TAB PO (09:00)
[2018-10-21] MEDS: NIFEdipine (XL) 60 MG TAB PO (09:00)
[2018-10-21] MEDS: SOD CHLORIDE 0.9% 500 ML (13:00)
[2018-10-21] MEDS: FENTAnyl 50 MCG/ML VIAL (13:12)
[2018-10-21] MEDS: MIDAZOLAM 1 MG/ML 2 ML INJ (13:15)
[2018-10-21] MEDS: LIDOCAINE 1% (MPF) 5 ML VIAL (13:30)
[2018-10-21] MEDS: GELATIN 12MM X 7 MM SPONGE (13:50)
[2018-10-21] MEDS: morphine 2 MG INJ IV (15:14)
== END 2018-10-21 19:15 | disposition home or self-care (01) | DRG 684 ==
LOC: 2NE 21:17 → E/R 12:04 → 2NE 13:53
PROC: 5A1D70Z Performance of Urinary Filtration, Intermittent, Less than 6 Hours Per Day (ICD-10-PCS; 2018-10-20)
PROC: 0TB13ZX Excision of Left Kidney, Percutaneous Approach, Diagnostic (ICD-10-PCS; principal; 2018-10-21)
DX: N17.9 Acute kidney failure, unspecified (principal); I10 Essential (primary) hypertension; E78.5 Hyperlipidemia, unspecified; D64.9 Anemia, unspecified; E11.9 Type 2 diabetes mellitus without complications; S42.255D Nondisplaced fracture of greater tuberosity of left humerus, subsequent encounter for fracture with routine healing; Z91.81 History of falling
CPT/HCPCS: 73030; 77012; 80048; 82962; 83735; 84100; 85025; 85610; 85730; 90935; 93005; 99285-25; G0378